=== PATIENT | female | born 1975 | race Caucasian/White ===

== ENCOUNTER 2021-12-07 13:56 | Emergency (ER) | payer SELFPAY ==
--- NOTE | ~2021-12-07 | CT_ITS ---
EXAMINATION:CT diagnostic chest w con DATE: 12/07/2021 16:17 INDICATION: Left axillary abscess. Left breast mass. TECHNIQUE: Computed tomography (CT) of the chest was performed with 75 mL Omnipaque 300 intravenous c ontrast. Automated exposure control and iterative reconstruction technique were employed. The dose-le ngth product (DLP) was 121.77 mGy-cm. COMPARISON: None. FINDINGS: There is mild emphysema. A calcified right lung nodule is consistent with old granulomatous disease. No pleural effusion. The heart size is normal. No pericardial effusion. In the left axilla, there is fat stranding and a punctate focus of gas. The bones are unremarkable. IMPRESSION: 1. Fat stranding and punctate focus of gas in left axilla, consistent with cellulitis. No drainable f luid collection. 2. Mild emphysema. Reviewed, dictated and finalized at location A. IMPRESSION: 1. Fat stranding and punctate focus of gas in left axilla, consistent with cell ulitis. No drainable fluid collection. 2. Mild emphysema.
--- NOTE | ~2021-12-07 | XR_ITS ---
EXAMINATION: XR chest 2V DATE: 12/07/2021 16:26 INDICATION: Tachycardia. TECHNIQUE: Frontal and lateral views of the chest were obtained. COMPARISON: Chest CT 12/07/2021 FINDINGS: A calcified right lung nodule is consistent with old granulomatous disease. No pleural effu crystal or pneumothorax. The heart size is normal. IMPRESSION: 1. No acute cardiopulmonary disease. Reviewed, dictated and finalized at location A.
[2021-12-07 14:03] VITALS: BP 175/93; PULSE 105; RESP 16; TEMP 36.3; O2SAT 98
--- NOTE | 2021-12-07 14:51 | ECG_ITS ---
Measurements Intervals [place] Rate: 70 P: 66 SD: 160 QRS: 49 QRSD: 77 T: 41 QT: 407 QTc: 439 Interpretive Statements SINUS RHYTHM NORMAL ECG Electronically Signed On 12-07-2021 22:40:33 CDT by Javon Garcia D.O.
[2021-12-07 15:22] LABS: Basophils Absolute Auto 0.1 K/mm3 (0.0-0.1); Basophils Percent Auto 0.9 % (0.2-1.2); Eosinophils Absolute Auto 0.1 K/mm3 (0-0.3); Eosinophils Percent Auto 0.9 % (0-4.4); Hematocrit 43.1 % (37.0-47.0); Hemoglobin 14.5 g/dL (12.0-15.0); Immature Granulocyte Absolute 0.04 K/mm3 (0.00-0.031); Immature Granulocyte Percent A 0.3 % (0-0.5); Lymphocytes Absolute Auto 5.12 K/mm3 (0.9-3.2); Lymphocytes Percent Auto 33.7 % (18.3-44.2); Mean Corpuscular HGB Conc 33.6 g/dl (32-36); Mean Corpuscular Hemoglobin 32.1 pg (26-34); Mean Corpuscular Volume 95.4 fl (80-100); Mean Platelet Volume 9.6 fl (7.4-10.4); Monocytes Absolute Auto 0.6 K/mm3 (0.1-0.6); Monocytes Percent Auto 3.9 % (2.6-8.5); Neutrophils Absolute Auto 9.2 K/mm3 (1.3-6.7); Neutrophils Percent Auto 60.3 % (45.5-73.1); Platelet Count Result 470 k/mm3 (150-375); Red Blood Count 4.52 M/mm3 (4.2-5.4); Red Cell Distribution Width 13.2 % (11.5-14.5); White Blood Count 15.2 K/mm3 (4.5-10.0)
[2021-12-07] MEDS: SODIUM CHLORIDE 0.9% IV 1,000 ML 999 ML IV CONT (15:22)
[2021-12-07 15:32] LABS: Lactic Acid Reflex 1.7 mmol/L (0.7-2.0)
[2021-12-07 15:35] LABS: Alanine Aminotransferase 26 U/L (6-35); Albumin Level 4.9 g/dL (3.5-5.1); Alkaline Phosphatase 99 U/L (38-126); Anion Gap 13 mmol/L (8-16); Aspartate Amino Transferase 43 U/L (14-36); Bilirubin,Total 0.6 mg/dL (0.2-1.3); Blood Urea Nitrogen 13 mg/dL (7-17); CRP < 0.5 mg/dL (<1.0); Calcium 9.4 mg/dL (8.4-10.2); Carbon Dioxide 22 mmol/L (22-30); Chloride 104 mmol/L (98-107); Estimated CRCL calculation 74 ml/min; Estimated Glomerular Filt Rate > 60; Glucose 107 mg/dL (65-110); Potassium 3.4 mmol/L (3.4-5.0); Sodium 139 mmol/L (137-145)
[2021-12-07 15:38] LABS: Prothrombin Time 12.6 Seconds (11.1-14.7)
[2021-12-07 15:39] LABS: Partial Thromboplastin Time 26.5 SECONDS (22.3-36.8)
[2021-12-07 16:42] VITALS: BP 137/98; PULSE 103; RESP 12; O2SAT 98
[2021-12-07 17:01] LABS: Appearance Urine Clear (Clear); Bilirubin Urine Negative (Negative); Blood Urine Negative (Negative); Color Urine Yellow (Yellow); Glucose Urine UA Negative (Negative); Ketones Urine Negative (Negative); Leukocyte Esterase Ur Negative LEU/UL (Negative); Nitrate Urine Negative (Negative); Protein Urine Negative (Negative); Specific Grav Ur 1.015 (1.001-1.035); Urobilinogen Urine 0.2 mg/dL (<2.0)
[2021-12-07 17:03] LABS: Add Urine Microscopic? NO
--- NOTE | 2021-12-07 17:22 | ED.GENADULT ---
HPI - General Adult General Chief complaint: Unspecified Stated complaint: weakness and abscess Time Seen by Provider: 12/07/21 14:13 Source: patient Mode of arrival: ambulatory Limitations: no limitations History of Present Illness HPI narrative: 46-year-old female presents today with complaints of not feeling well and wound to the left axilla. Patient's story starts 22 days ago where she had contact she states with a deer that had placenta on it. Patient states 3 days after that she started with a left axilla bump that enlarged quickly. Patient states she visited a hospital was prescribed Bactrim and clindamycin but was told not to start them unless it started draining. Patient was discharged. She then returned to a second hospital for concerns of the lump and chest pain where she was treated for hypokalemia and states that they did nothing for the lump. Patient then visited a third hospital due to drainage from said bump. She started Bactrim and clindamycin on November 20 and states she finished what she thinks is a 14-day course. Patient then visited a fourth hospital on the where an x-ray and cultures were completed. No new antibiotics were ordered. Patient arrives here stating she just does not feel good. Says she has been vomiting intermittently, feels like she is going to , has been having fevers, cold sweats, blurry vision, diarrhea. Patient states that she had a fever yesterday of 104 that was responsive to ibuprofen. Patient also adds to the story that there was another person who had contact with the deer that has had similar symptoms. Left axilla wound open, no drainage noted, erythema to the edges but not warm. Wound appears to be healing well. Wound does tunnel but patient states that it has improved. She is applying a dry dressing and keeping the area clean. Patient states she is no longer packing the wound at this time. Patient lives in [place] has been recently traveling over the last 22+ days. Patient states she had contact with a deer in [place]. One of the hospitals that she went to was in [facility] but she does not remember the name. Related Data Allergies Allergy/AdvReac Type Severity Reaction Status Date / Time Penicillins Allergy Anaphylaxis Verified 12/07/21 14:10 tramadol Allergy Difficulty Verified 12/07/21 14:10 Breathing Review of Systems Review of Systems: CONSTITUTIONAL: Fevers, sweats, chills, malaise, fatigue. EYES: Denies visual changes, redness, or discharge. ENT: Sore throat. Denies rhinorrhea, congestion, or otalgia. CARDIOVASCULAR: Denies chest pain, palpitations, or edema. RESPIRATORY: Denies cough or dyspnea. GASTROINTESTINAL: Denies abdominal pain, nausea, vomiting, or diarrhea. GENITOURINARY: Denies dysuria or hematuria. SKIN: Denies rash or itching. MUSCULOSKELETAL: Myalgia. Denies back pain, joint pain. NEUROLOGIC: Denies headache, numbness, dizziness, or weakness. PSYCHIATRIC: Denies anxiety or depression. [facility] Social History Social History (Updated 12/07/21 @ 18:15 by Viv Silva, [employer]) Smoking status: Current some day smoker Course Course Emergency Course: Discussed labs and CT with patient and . Long conversation had about plan of care. Plan is to send patient home with doxycycline 100 mg twice a day for 14 days. Patient is encouraged to go back home to [place] where she needs to find a primary care physician in to follow-up with her on a routine basis. Patient also instructed that if things do not improve or get worse that she should be seen. She should return to the ER with signs of sepsis or any concerns. Vital Signs Vital signs: Vital Signs Temperature 36.3 C L 12/07/21 14:03 Pulse Rate 105 H 12/07/21 14:03 Respiratory Rate 16 12/07/21 14:03 Blood Pressure 175/93 H 12/07/21 14:03 Pulse Oximetry 98 12/07/21 14:03 Oxygen Delivery Room Air 12/07/21 14:03 Temperature 36.3 C L 12/07/21 14:03 Pulse Rate 103 H
[2021-12-07] MEDS: DOXYCYCLINE HYCLATE 100 MG TABLET PO (17:47)
== END 2021-12-07 17:48 | disposition home or self-care (01) ==
PROVIDERS: Emergency Provider Nurse Practitioner Family
DX: L03.112 Cellulitis of left axilla (principal); F17.200 Nicotine dependence, unspecified, uncomplicated; J43.9 Emphysema, unspecified
CPT/HCPCS: 36415; 71046; 71260; 80053; 81003; 83605; 85025; 85610; 85730; 86140; 87040; 87081; 87880; 93005; 96360; 99284; A9270; J7030; Q9967